=== PATIENT | male | born 1995 | race Caucasian/White ===

== ENCOUNTER 2024-04-19 16:36 | Emergency (ER) | payer BC ==
[~2024-04-19] VITALS: Ht 172.7 cm; Wt 89.9 kg
[2024-04-19 17:01] VITALS: BP 143/89; PULSE 80; RESP 18; TEMP 98; O2SAT 98
[2024-04-19 17:30] VITALS: O2SAT 98
--- NOTE | 2024-04-19 17:30 | NUR ---
28 Y/O M C/O LOWER BACK PAIN X 1 DAY AFTER FALLING FROM A 2 STORY [place]. PT STATES HE DID NOT HIT HIS HEAD BUT +LOC. PT DENIES N/V/D. PT DENIES ANY FEVERS/CHILLS. PMH NONE NKA
[2024-04-19] MEDS: IBUPROFEN 600 MG TAB PO ONE (18:23)
--- NOTE | 2024-04-19 18:40 | NUR ---
PT TAKEN TO XRAY VIA W/C
--- NOTE | 2024-04-19 18:50 | NUR ---
PT BROUGHT BACK FROM XRAY
--- NOTE | 2024-04-19 18:53 | NUR ---
Eduar horne in [facility] - 04/19/24 at 1853 by ARIAN PT BROUGHT BACK FROM CT
[2024-04-19 19:00] VITALS: BP 137/85; PULSE 78; RESP 18; TEMP 98; O2SAT 98
[2024-04-19] MEDS ORDERED: IBUP-2218 PO (20:30)
[2024-04-19] MEDS ORDERED: LIDO1ADH54 TP (20:30)
[2024-04-19] MEDS ORDERED: ACET500T99 PO (20:30)
--- NOTE | 2024-04-19 20:36 | NUR ---
Patient discharged with v/s stable. Written and verbal after care instructions given FOR LUMBAR STRAIN,ABRAISION Patient alert, oriented and verbalized understanding of instructions. Ambulatory with steady gait. All questions addressed prior to discharge. ID band removed. Patient advised to follow up with PMD. Rx of TYLENOL,IBUPROFEN,LIDOCAINE given. Opportunity to ask questions provided and answered. WORK NOTE PROVIDED
== END 2024-04-19 20:36 | disposition home or self-care (01) ==
LOC: MED 16:36
DX: S39.012A Strain of muscle, fascia and tendon of lower back, initial encounter (principal); S80.211A Abrasion, right knee, initial encounter; Z79.899 Other long term (current) drug therapy; W18.39XA Other fall on same level, initial encounter; Y93.89 Activity, other specified; Y92.096 Garden or yard of other non-institutional residence as the place of occurrence of the external cause; Y99.8 Other external cause status
CPT/HCPCS: 72110; 99283